=== PATIENT | female | born 1965 | race Caucasian/White ===

== ENCOUNTER → 2018-05-31 | Outpatient (CLI) | payer BC ==
--- NOTE | 2018-05-31 22:41 | MR ---
EXAMINATION TYPE: MR angio head wo con DATE OF EXAM: 05/31/2018 COMPARISON: Prior MRA [facility] [place] December 19, 2013. HISTORY: Stage 4 PKD, family hx aneurysm TECHNIQUE: Time of flight images focusing on the [place] were performed without contrast.. 2-D and 3-D postprocessing imaging is performed. FINDINGS: There is nonvisualization of distal right vertebral artery similar to prior there is no add itional significant focal stenosis the posterior circulation. There are small caliber but patent post erior communicating arteries redemonstrated bilaterally. No aneurysmal change is noted. Images of the anterior circulation show patent anterior communicating artery. There is small caliber right A1 segment with larger right A2 segment due to patent anterior communicating artery. No new ane urysmal change is present. There is redemonstration of eccentric aneurysm left anterior communicating artery near left A2 segment measuring 3.2 x 1.9 mm transversely axial image 122, this appears slight ly larger from prior study where I get measurements of 2.5 x 1.7 mm image 111. 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 No new aneurysm is seen.
== END | disposition home or self-care (01) ==
LOC: RADMRIMAIN 17:27
PROVIDERS: ATTEND Internal Medicine Nephrology
DX: I72.8 Aneurysm of other specified arteries (principal); Q61.3 Polycystic kidney, unspecified; N18.4 Chronic kidney disease, stage 4 (severe)
CPT/HCPCS: 70544

== ENCOUNTER → 2018-12-27 | Outpatient (CLI) | payer BC ==
--- NOTE | 2018-12-28 09:21 | MM ---
Reason for exam: screening (asymptomatic). Last mammogram was performed 2 years and 10 months ago. History: Patient is postmenopausal, history of other cancer, and had first child at age 33. Took hormonal contraceptives for 1 month beginning at age 41. Physical Findings: A clinical breast exam by your physician is recommended on an annual basis and results should be correlated with mammographic findings. MG Screening Mammo w CAD Bilateral CC and MLO view(s) were taken. Prior study comparison: March 05, 2016, bilateral MG screening mammo w CAD. April 16, 2011, bilateral digital screening mammo w/CAD. The breast tissue is almost entirely fat. No significant changes when compared with prior studies. ASSESSMENT: Benign, BI-RAD 2 RECOMMENDATION: Routine screening mammogram of both breasts in 1 year.
--- NOTE | 2018-12-28 18:54 | BD ---
EXAMINATION TYPE: Axial Bone Density DATE OF EXAM: 12/27/2018 COMPARISON: NONE CLINICAL HISTORY: Height: 60.5 Weight: 219.3 FRAX RISK QUESTIONS: Alcohol (3 or more units per day): no Family History (Parent hip fracture): no Glucocorticoids (More than 3mos): no (Ex: prednisone, prednisolone, methylprednisolone, dexamethasone, and hydrocortisone). History of Fracture in Adulthood: no Secondary Osteoporosis: 1. Type 1 Diabetes: no 2. Hyperthyroidism: no 3. Menopause before 45: yes 4. Malnutrition: no 5. Chronic liver disease: no Rheumatoid Arthritis: no Current Tobacco Use: no RISK FACTORS HISTORY OF: Family History of Osteoporosis: no Active: sometimes Diet low in dairy products/other sources of calcium: yes Postmenopausal woman: age 42 Lost more than 2 inches in height since high school: no MEDICATIONS: Thyroid Medications: levothyroxine How Long: since 2002 Additional History: EXAM MEASUREMENTS: Bone mineral densitometry was performed using the [employer] System. Bone mineral density as measured about the Lumbar spine is: ----- L1-L4(G/cm2): 1.114 T Score Values are as follows: ----- L2: -0.4 ----- L3: -0.8 ----- L4: -1.1 ----- L1-L4: -0.6 Bone mineral density has: decreased -4.7 % since study of: 04.16.2011 Bone mineral density about the R hip (g/cm2): 1.155 Bone mineral density about the L hip (g/cm2): 1.158 T Score values are as follows: -----R Neck: 0.8 -----L Neck: 0.9 -----R Total: 2.0 -----L Total: 2.0 Bone mineral density has: decreased -10.0 % since study of: 04.16.2011 IMPRESSION: Normal (Values between +1 and -1 indicate normal bone mass). Consider repeating this study in 5 year s or sooner if there is some new clinical indication. NOTE: T-SCORE=SD OF THE YOUNG ADULT MEAN.
== END | disposition home or self-care (01) ==
LOC: RADMAMWWP 14:48
PROVIDERS: ATTEND Family Medicine
DX: Z12.31 Encounter for screening mammogram for malignant neoplasm of breast (principal); N95.1 Menopausal and female climacteric states; M89.9 Disorder of bone, unspecified
CPT/HCPCS: 77067; 77080

== ENCOUNTER → 2020-07-04 | Outpatient (CLI) | payer BC ==
--- NOTE | 2020-07-09 08:44 | MM ---
Reason for exam: screening (asymptomatic). Last mammogram was performed 1 year and 6 months ago. History: Patient is postmenopausal, history of other cancer, and had first child at age 33. Took hormonal contraceptives for 1 month beginning at age 41. Physical Findings: A clinical breast exam by your physician is recommended on an annual basis and results should be correlated with mammographic findings. MG Screening Mammo w CAD Bilateral CC and MLO view(s) were taken. Prior study comparison: December 27, 2018, bilateral MG screening mammo w CAD. March 05, 2016, bilateral MG screening mammo w CAD. There are scattered fibroglandular densities. No significant changes when compared with prior studies. ASSESSMENT: Benign, BI-RAD 2 RECOMMENDATION: Routine screening mammogram of both breasts in 1 year.
== END | disposition home or self-care (01) ==
LOC: RADMAMWWP 08:01
PROVIDERS: ATTEND Family Medicine
DX: Z12.31 Encounter for screening mammogram for malignant neoplasm of breast (principal)
CPT/HCPCS: 77067

== ENCOUNTER → 2020-07-16 | Outpatient (CLI) | payer BC | END | disposition home or self-care (01) | LOC: RADBDWWP 08:03 | PROVIDERS: ATTEND Family Medicine | DX: Z53.9 Procedure and treatment not carried out, unspecified reason (principal) ==

== ENCOUNTER 2023-12-03 11:00 | Day surgery (SDC) | payer BC ==
[2023-12-03] MEDS ORDERED: LACTATED RINGERS 1,000 ML IV SCH (11:21)
[2023-12-03] MEDS ORDERED: LIDOCAINE 1% (10MG/ML) FOR IV START INTRADERMA PRN (11:21)
[2023-12-03] MEDS ORDERED: HYDROmorphone 0.5 MG/0.5 ML SYRINGE IVP PRN (11:21)
[2023-12-03] MEDS ORDERED: droPERidol 5 MG/2 ML VIAL IVP ONE (11:21)
[2023-12-03] MEDS: IV FLUID CONTINUATION 1,000 ML IV ONE (11:49)
[2023-12-03] MEDS: SODIUM CHLORIDE 0.9% 1,000 ML BAG IV STA (11:51)
[2023-12-03 11:54] LABS: Basophils # (A) 0.1 k/uL (0-0.2); Basophils % (A) 1 %; Eosinophils # (A) 0.4 k/uL (0-0.7); Eosinophils % (A) 6 %; HCT 32.1 % (34.0-46.0); HGB 10.3 gm/dL (11.4-16.0); Lymphocytes # (A) 1.7 k/uL (1.0-4.8); Lymphocytes % (A) 24 %; MCV 100.2 fL (80.0-100.0); Mean Platelet Volume 8.5; Monocytes # (A) 0.5 k/uL (0-1.0); Monocytes % (A) 7 %; Neutrophils # (A) 4.3 k/uL (1.3-7.7); Neutrophils % (A) 61 %; Platelet Count 270 k/uL (150-450); RDW 13.1 % (11.5-15.5); WBC 7.1 k/uL (3.8-10.6)
[2023-12-03 11:59] LABS: Glucose,Whole Blood 98 mg/dL (70-110)
[2023-12-03] MEDS: ONDANSETRON 4 MG/2 ML VIAL IVP ONE (12:03)
[2023-12-03] MEDS: ACETAMINOPHEN TAB 500 MG TAB PO PRN (12:04)
[2023-12-03] MEDS: DEXAMETHASONE SOD PHOSPHATE 4 MG/ML 1 ML VIAL IV ONE (12:04)
[2023-12-03] MEDS: HEPARIN SODIUM,PORCINE 5,000 UNIT/ML 1 ML VIAL SQ PRN (12:05)
[2023-12-03] MEDS: SCOPOLAMINE 1 MG/72 HR PATCH TRANSDERM ONE (12:13)
--- NOTE | 2023-12-03 12:13 | P.GSHP ---
History of Present Illness H&P Date: 12/03/23 Chief Complaint: Renal failure 58-year-old female here today for peritoneal dialysis catheter insertion. Patient was last seen in the office in 2019. Kidney function has gradually declined. Recent GFR 11. Complains of fatigue, morning nausea, itching. Patient remains on the transplant list. No history of previous hernias. Abdominal surgeries hysterectomy. Past Medical History Past Medical History: Cancer, Diabetes Mellitus, Hyperlipidemia, Hypertension, Renal Disease, Thyroid Disorder Additional Past Medical History / Comment(s): CKD stage V, polycystic kidney disease, THYROID CANCER HX History of Any Multi-Drug Resistant Organisms: None Reported Past Surgical History: Bladder Surgery, Hysterectomy Additional Past Surgical History / Comment(s): 11/27/23 lipoma removed L arm, THYROIDECTOMY, BLADDER SLING, colonoscopy Past Anesthesia/Blood Transfusion Reactions: Postoperative Nausea & Vomiting (PONV) Additional Past Anesthesia/Blood Transfusion Reaction / Comment(s): PONV and diarrhea Smoking Status: Never smoker - Past Family History Mother Family Medical History: No Reported History Father Additional Family Medical History / Comment(s): Polycystic kidney disease. Medications and Allergies Home Medications Medication Instructions Recorded Confirmed Type Cholecalciferol [Vitamin D3] 2,000 tab PO SA 01/23/16 12/03/23 History Levothyroxine Sodium [Tirosint] 12.5 mcg PO SA 01/23/16 12/03/23 History lisinopriL [Zestril] 2.5 mg PO HS 01/23/16 12/03/23 History Aspirin [Adult Low Dose Aspirin EC] 81 mg PO HS 11/30/23 11/30/23 History Calcium Acetate 667 mg PO TID-W/MEALS 11/30/23 12/03/23 History Fenofibrate Nanocrystallized 145 mg PO HS 11/30/23 12/03/23 History [Fenofibrate] Levothyroxine Sodium [Tirosint] 25 mcg PO DAILY 11/30/23 12/03/23 History Pediatric Multivitamin No.30 1 tab PO DAILY 11/30/23 11/30/23 History [Multivitamin Children's Gummies] Rosuvastatin [Crestor] 20 mg PO MOWEFR 11/30/23 12/03/23 History Sodium Bicarbonate Tab 650 mg PO TID 11/30/23 12/03/23 History amLODIPine 10 mg PO QAM 11/30/23 12/03/23 History Allergies Allergy/AdvReac Type Severity Reaction Status Date / Time peas AdvReac Nausea Verified 12/03/23 11:29 shrimp AdvReac Diarrhea Verified 12/03/23 11:29 Surgical - Exam Vital Signs Temp Pulse Resp BP Pulse Ox 97.9 F 64 16 145/71 100 12/03/23 11:36 12/03/23 11:36 12/03/23 11:36 12/03/23 11:36 12/03/23 11:36 Physical exam: General: Well-developed, well-nourished HEENT: Normocephalic, sclerae nonicteric Abdomen: Nontender, nondistended Extremities: No edema Neuro: Alert and oriented Results - Labs 12/03/23 11:44 Abnormal Lab Results - Last 24 Hours (Table) 12/03/23 Range/Units 11:44 RBC 3.20 L (3.80-5.40) m/uL Hgb 10.3 L (11.4-16.0) gm/dL Hct 32.1 L (34.0-46.0) % MCV 100.2 H (80.0-100.0) fL Assessment and Plan (1) Renal failure Narrative/Plan: Will proceed with peritoneal dialysis catheter insertion at this time. Risks of bleeding, infection, catheter malfunction, peritonitis, bowel injury, hernia, fluid leak all discussed. She understands and wishes to proceed. Current Visit: Yes Status: Acute Code(s): N19 - UNSPECIFIED KIDNEY FAILURE SNOMED Code(s): 43940044
[2023-12-03 12:35] LABS: ALT 14 U/L (4-34); African American GFR (CKD) 16 (>60 ml/min/1.73 sqM); Anion Gap 8 mmol/L; Blood Urea Nitrogen 47 mg/dL (7-17); Calcium 8.2 mg/dL (8.4-10.2); Carbon Dioxide 17 mmol/L (22-30); Chloride 117 mmol/L (98-107); Glucose 87 mg/dL (74-99); Non-African American GFR(CKD) 14 (>60 ml/min/1.73 sqM); Sodium 142 mmol/L (137-145); Total Bilirubin 0.9 mg/dL (0.2-1.3)
[2023-12-03 12:39] LABS: Potassium 5.4 mmol/L (3.5-5.1); Total Protein 7.5 g/dL (6.3-8.2)
[2023-12-03 12:40] LABS: AST 39 U/L (14-36); Albumin 4.5 g/dL (3.5-5.0); Alkaline Phosphatase 23 U/L (38-126)
[2023-12-03] MEDS ORDERED: PHENYLEPHRINE 10 MG/ML VIAL ONE (12:50)
[2023-12-03] MEDS ORDERED: PROPOFOL 10 MG/ML 20 ML VIAL IV ONE (12:50)
[2023-12-03] MEDS ORDERED: fentaNYL (PF) 50 MCG/ML 2 ML AMP ONE (12:50)
[2023-12-03] MEDS ORDERED: MIDAZOLAM 2 MG/2 ML VIAL ONE (12:50)
[2023-12-03] MEDS ORDERED: LIDOCAINE 1% INJ 10MG/ML (20 ML MDV) ONE (12:50)
[2023-12-03] MEDS ORDERED: GLYCOPYRROLATE 0.2 MG/ML 2 ML VIAL ONE (12:50)
[2023-12-03] MEDS: BUPIVACAINE (PF) 0.25% 30 ML VIAL SQ ONE (13:12)
[2023-12-03] MEDS ORDERED: NALOXONE 0.4 MG/ML 1 ML VIAL IV PRN (13:37)
--- NOTE | 2023-12-03 13:40 | P.OP ---
Date of Procedure: 12/03/23 Procedure(s) Performed: PREOPERATIVE DIAGNOSIS: Renal failure POSTOPERATIVE DIAGNOSIS: Same PROCEDURE: Peritoneal dialysis catheter insertion SURGEON: Jose EBL: Minimal ANESTHESIA: General COMPLICATIONS: None OPERATIVE PROCEDURE: The patient was placed in the operative table in the supine position. The abdomen was prepped and draped in usual sterile fashion. A small vertical incision was made in the left periumbilical location. Dissection down through the subcutaneous tissues took place using electrocautery. The anterior rectus was divided vertically using the scalpel. The rectus was bluntly. The posterior rectus was visualized. An 0 Vicryl pursestring was placed. A small opening in the posterior rectus fascia and peritoneum took place using a Metzenbaum scissors. There were no adhesions to the suture that was placed. The pigtail catheter was advanced into the pelvis over a stylette. No resistance was met. The inner cuff was secured to the fascia using the 0 Vicryl pursestring that was placed. The catheter was tunneled to an exit site in the left lateral lower quadrant. The catheter was connected to the 1 L bag of saline and approximated 800 mL of saline was easily introduced into the peritoneal cavity. The fluid was then allowed to evacuate. The majority of the fluid was returned. The anterior rectus fascia was then reapproximated using a running 0 Vicryl stitch. The subcutaneous tissues reprepped using 3-0 Vicryl sutures and the skin using 4-0 Monocryl sutures. The outpatient dialysis adapter was applied to the end of the catheter. Sterile dressings were then applied after skin glue was placed over the incision. DISPOSITION: Stable to recovery room
[2023-12-03 13:55] VITALS: TEMP 97.2
[2023-12-03 14:47] VITALS: RESP 18
[2023-12-03] MEDS: HYDROcodone/APAP 5-325MG 1 EACH TAB PO PRN (15:01)
[2023-12-03 16:17] VITALS: BP 126/79; PULSE 69
== END 2023-12-03 16:18 | disposition home or self-care (01) ==
LOC: OR 11:00
PROVIDERS: ATTEND Surgery
DX: I12.0 Hypertensive chronic kidney disease with stage 5 chronic kidney disease or end stage renal disease (principal); E11.22 Type 2 diabetes mellitus with diabetic chronic kidney disease; N18.6 End stage renal disease; E78.5 Hyperlipidemia, unspecified; E07.9 Disorder of thyroid, unspecified; Z79.890 Hormone replacement therapy; Z85.850 Personal history of malignant neoplasm of thyroid; Z90.710 Acquired absence of both cervix and uterus; Z79.899 Other long term (current) drug therapy; Z79.82 Long term (current) use of aspirin; Z91.013 Allergy to seafood; Z91.018 Allergy to other foods
CPT/HCPCS: 80053; 85025; 49421; C1752; J2250; J1644; J1100; J0690; J2405; J2001; J3010; J2704; J2371; J0665